=== PATIENT | female | born 1995 | race Caucasian/White ===

== ENCOUNTER 2017-05-03 18:03 | Emergency (ER) | payer SELFPAY ==
[2017-05-03 18:12] VITALS: BP 120/80; BMI 23.8
[2017-05-03] MEDS ORDERED: TORADOL 60 MG VIAL IM ONE (18:36)
[2017-05-03] MEDS ORDERED: NORFLEX INJ IM ONE (18:36)
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
[2017-05-03] MEDS ORDERED: TORADOL 60 MG VIAL ONE (18:42)
[2017-05-03] MEDS ORDERED: NORFLEX INJ ONE (18:42)
== END 2017-05-03 19:24 | disposition home or self-care (01) ==
LOC: ER 18:14
DX: S39.012A Strain of muscle, fascia and tendon of lower back, initial encounter (principal); M54.41 Lumbago with sciatica, right side; G89.29 Other chronic pain; Y33.XXXA Other specified events, undetermined intent, initial encounter; Y92.9 Unspecified place or not applicable
CPT/HCPCS: 96372; 99282; J1885; J2360